=== PATIENT | female | born 1950 | race Caucasian/White ===

== ENCOUNTER 2020-03-26 17:05 | Inpatient (IN) ==
[2020-03-26] MEDS ORDERED: Naloxone 0.4 MG/ML INJ IVP PRN (20:41)
[2020-03-26] MEDS ORDERED: Ipratropium/Albuterol Neb 3 ML IH PRN (20:44)
[2020-03-27] MEDS ORDERED: Piperacillin/Tazobactam 3.375 GM in 0.9 % Sodium Chloride Mini Bag 100 ML IVPB ONE (02:00)
[2020-03-27] MEDS: Metoprolol XL (24 HR) Succ 50 MG TAB.ER.24H PO SCH (08:23)
[2020-03-27] MEDS ORDERED: predniSONE 20 MG TABLET PO SCH (09:00)
[2020-03-27 09:28] LABS: Basophils # 0.1 K/mcL (0.0-0.2); Basophils % 0.4 %; Eosinophils % 0.2 %; Hematocrit 42.1 % (35.3-44.9); Hemoglobin 13.7 g/dL (11.5-15.4); Immature Granulocytes % 0.3 % (0-4); Lymphocytes # 3.8 K/mcL (0.6-4.6); Lymphocytes % 33.7 %; Mean Corpuscular HGB Conc 32.5 g/dL (31.6-35.5); Mean Corpuscular Hemoglobin 30.6 pg (28.0-33.3); Mean Corpuscular Volume 94.2 fL (83.0-100.0); Mean Platelet Volume 9.2 fL (9.4-12.4); Monocytes # 1.2 K/mcL (0.0-1.3); Monocytes % 10.1 %; Neutrophils # 6.3 K/mcL (1.6-8.9); Platelet Count 251 K/mcL (140-400); Red Blood Count 4.47 M/mcL (3.82-4.97); Red Cell Distribution Width 13.1 % (11.5-14.5); Segmented Neutrophils % 55.3 %; White Blood Count 11.4 K/mcL (4.3-11.1)
[2020-03-27 09:41] LABS: Prothrombin Time 11.3 Seconds (9.4-12.1)
[2020-03-27 09:48] LABS: BUN/Creatinine Ratio 25 (6-26); Blood Urea Nitrogen 20 mg/dL (8-23); Calcium 8.9 mg/dL (8.6-10.3); Carbon Dioxide 24 mEq/L (23-29); Chloride 111 mEq/L (98-107); Glucose 90 mg/dL (70-105); Magnesium 2.1 mg/dL (1.6-2.6); Osmolality,Calculated 298 (280-300); Phosphorous 3.2 mg/dL (2.7-4.5); Potassium 3.5 mEq/L (3.5-5.1); Sodium 143 mEq/L (136-145); eGFR For African Americans > 60 (> 60); eGFR For Non-African Americans > 60 (> 60)
[2020-03-27] MEDS ORDERED: *HR* Labetalol 20 MG/4 ML SYRINGE IVP PRN (10:09)
[2020-03-27] MEDS ORDERED: Ondansetron 4 MG/2 ML VIAL IVP ONE (10:09)
[2020-03-27] MEDS ORDERED: *HR* Promethazine 25 MG/ML VIAL IVP PRN (10:09)
[2020-03-27] MEDS ORDERED: *HR* Propofol 200 MG/20 ML VIAL IVP ONE (10:48)
[2020-03-27] MEDS ORDERED: Lidocaine -MPF 2% 2 ML VIAL ONE (10:48)
[2020-03-27] MEDS ORDERED: *HR* FentaNYL (PF) 100 MCG/2 ML VIAL ONE (10:48)
[2020-03-27] MEDS ORDERED: Lidocaine -MPF 4% 5 ML AMPUL ONE (10:48)
[2020-03-27] MEDS ORDERED: *HR* Succinylcholine 200 MG/10 ML VIAL IVP ONE (10:50)
[2020-03-27] MEDS ORDERED: Ondansetron 4 MG/2 ML VIAL ONE (10:57)
[2020-03-27] MEDS ORDERED: Dexamethasone 4 MG/ML VIAL ONE (10:57)
[2020-03-27] MEDS ORDERED: Albuterol 2.5 MG/3 ML NEBULIZER ONE (11:28)
[2020-03-27] MEDS: Piperacillin/Tazobactam 3.375 GM in 0.9 % Sodium Chloride Mini Bag 100 ML IVPB SCH ×2 (13:13→17:58)
[2020-03-27] MEDS ORDERED: Melatonin 3 MG TABLET PO SCH (21:00)
[2020-03-28] MEDS: Piperacillin/Tazobactam 3.375 GM in 0.9 % Sodium Chloride Mini Bag 100 ML IVPB SCH (00:08)
[2020-03-28 05:55] LABS: Basophils % 0.1 %; Hematocrit 42.7 % (35.3-44.9); Hemoglobin 14.1 g/dL (11.5-15.4); Immature Granulocytes % 0.5 % (0-4); Lymphocytes # 1.1 K/mcL (0.6-4.6); Lymphocytes % 7.5 %; Mean Corpuscular Hemoglobin 30.8 pg (28.0-33.3); Mean Corpuscular Volume 93.2 fL (83.0-100.0); Mean Platelet Volume 9.4 fL (9.4-12.4); Monocytes # 0.8 K/mcL (0.0-1.3); Monocytes % 5.7 %; Neutrophils # 12.4 K/mcL (1.6-8.9); Platelet Count 297 K/mcL (140-400); Red Blood Count 4.58 M/mcL (3.82-4.97); Red Cell Distribution Width 12.7 % (11.5-14.5); Segmented Neutrophils % 86.2 %; White Blood Count 14.4 K/mcL (4.3-11.1)
[2020-03-28 06:45] VITALS: BP 147/77
[2020-03-28] MEDS: Metoprolol XL (24 HR) Succ 50 MG TAB.ER.24H PO SCH (08:53)
[2020-03-28] MEDS ORDERED: predniSONE 20 MG TABLET PO SCH ×2 (09:00)
[2020-03-28] MEDS ORDERED: predniSONE 20 MG TABLET PO ONE (09:17)
== END 2020-03-28 10:17 | disposition home or self-care (01) | DRG 163 ==
LOC: 3BNU → SUATTDRO 19:22
PROVIDERS: ADMIT Internal Medicine; ATTEND Internal Medicine
PROC: ENDOBRF (2020-03-27 12:05)